=== PATIENT | female | born 1955 ===

== ENCOUNTER → 2020-12-24 08:00 | Outpatient (CLI) | payer OTHER | END | disposition home or self-care (01) | LOC: PPH VACUNA 08:00 | DX: Z23 Encounter for immunization (principal) ==

== ENCOUNTER 2025-02-19 07:42 | Day surgery (SDC) | payer OTHER ==
[2025-02-13 08:33] VITALS: BP 160/80
[2025-02-13 08:42] LABS: URINE APPEARANCE Clear; URINE BILIRRUBIN Negative (NEGATIVE); URINE COLOR Dark Yellow; URINE GLUCOSE Negative (NEGATIVE); URINE KETONE Trace (NEGATIVE); URINE LEUKOCYTE Moderate; URINE NITRATE Negative; URINE PROTEIN 30 (NEGATIVE)
[2025-02-13 08:46] LABS: BASO % 0.7 % (0.1-1.2); EOS # 0.15 (0.04-0.54); EOS % 3.7 % (0.7-7.0); HEMATOCRIT 41.4 % (34.1-44.9); HEMOGLOBIN 13.3 g/dL (11.2-15.7); LYMPH # 1.25 (1.18-3.74); LYMPH % 30.5 % (19.3-53.1); MEAN CORPUSCULAR HEMOGLOBIN 27.7 pg (25.6-32.2); MONO # 0.47 (0.24-0.82); MONO % 11.5 % (4.7-12.5); NEUT # 2.18 (1.56-6.13); NEUT % 53.1 % (34.0-71.1); PLATELET COUNT 367 K/uL (163-369); RED CELL DISTRIBUTION WIDTH 12.6 % (11.6-14.4)
[2025-02-13 08:46] LABS: URINE BACTERIA 64.8 uL (0.0-1933); URINE EPITHELIAL CELLS 47.9 uL (0.0-38.8); URINE RBC 29.3 uL (0.0-20.8); URINE WBC 436.7 uL (0.0-23.2)
[2025-02-13 09:00] LABS: URINE BLOOD TRACES; URINE CAST 0.44 uL (0.0-1.40)
[2025-02-13 09:10] LABS: TYPE CELLS RENAL TUBULAR
[2025-02-13 09:15] LABS: INR 0.94; PARTIAL THROMBOPLASTIN TIME 28.5 SECONDS (22.0-34.0); PROTHROMBIN TIME 10.3 SECONDS (9.0-11.5)
[2025-02-13 12:30] LABS: ALBUMIN 3.5 gm/dL (3.4-5.0); BILIRUBIN TOTAL 1.06 mg/dL (0.3-1.2); CALCIUM 8.8 mg/dL (8.5-10.1); CREATININE SERUM 0.75 mg/dL (0.55-1.02); GFR 76.84; GLOBULINA 3.7 G/DL (2.4-3.5); POTASSIUM 4.39 mEq/L (3.5-5.1); TOTAL PROTEIN 7.2 gm/dL (6.4-8.2)
[~2025-02-19] VITALS: Ht 149.9 cm; Wt 83.0 kg
[~2025-02-19 07:42] MED LIST: ALENDRONATE SOD70 MG; ALLERGY RELIEF10 MG; ATIVAN0.5 M1 PO; CELEXA20 MG PO; COZAAR50 MG; FLONASE16 GM; FLUTICASONE-SA1 EAC6; GABAPENTIN100 M2; GABAPENTIN100 MG PO; HYDROXYCHLOROQ200 MG; LEVOTHYROXINE25 MCG PO; LIPITOR40 MG PO; NORFLEX100MG PO; OXYC1TAB9 PO; PLAQUENIL PO; PLAVIX75 MG PO; PREDNISONE10 M2; PROTONIX40 MG PO; SPIRIVA RESPIMAT4 G1; TEZSPIRE210 MG/1.9; XARELTO10 MG PO
[2025-02-19] MEDS ORDERED: TRANEXAMIC ACID 100MG/1ML (1000MG) AMPUL IV ONE (07:49)
[2025-02-19] MEDS ORDERED: OxyCODONE HCL 5 MG TABLET (ROXICODONE) PO PRN (08:30)
[2025-02-19] MEDS ORDERED: ONDANSETRON HCL 2 MG/ML VIAL IV PRN (08:30)
[2025-02-19] MEDS ORDERED: ENOXAPARIN SODIUM 30 MG/0.3 ML SYRINGE SUBCUTANEO SCH (09:00)
[2025-02-19] MEDS ORDERED: CEFAZOLIN SODIUM 1,000 MG VIAL IV SCH (12:00)
[2025-02-19] MEDS ORDERED: MORPHINE SULFATE 4 MG/ML CARTRIDGE IV SCH (12:00)
[2025-02-19] MEDS ORDERED: GABAPENTIN 100 MG CAPSULE PO SCH (21:00)
[2025-02-19] MEDS ORDERED: ORPHENADRINE CITRATE 100 MG TABLET PO SCH (21:00)
== END 2025-02-19 11:10 | disposition home or self-care (01) ==
LOC: O/R 07:42 → SURH 07:42 → CIR.AMB 07:42 → SURH 08:45 → EDSTATUS 08:45 → SURH 10:00 → CIR.AMB 11:10 → O/R 11:10
PROVIDERS: ATTEND Orthopaedic Surgery
DX: M17.11 Unilateral primary osteoarthritis, right knee (principal); Z53.09 Procedure and treatment not carried out because of other contraindication

== ENCOUNTER 2025-02-26 05:32 | Inpatient (IN) | payer OTHER ==
[2025-02-26] MEDS ORDERED: CEFAZOLIN SODIUM 1,000 MG VIAL ONE (08:56)
[2025-02-26] MEDS ORDERED: TRANEXAMIC ACID 100MG/1ML (1000MG) AMPUL IV ONE (08:57)
[2025-02-26] MEDS ORDERED: OxyCODONE HCL/APAP UD (PERCOCET) PO PRN (10:45)
[2025-02-26] MEDS ORDERED: ONDANSETRON HCL 2 MG/ML VIAL IV PRN (10:45)
[2025-02-26] MEDS ORDERED: CEFAZOLIN SODIUM 1,000 MG VIAL IV SCH (12:00)
[2025-02-26] MEDS ORDERED: MORPHINE SULFATE 4 MG/ML CARTRIDGE IV SCH (12:00)
[2025-02-26] MEDS ORDERED: LIDOCAINE HCL 1%/EPINEPHRINE 20ML VIAL IJ ONE (12:04)
[2025-02-26] MEDS ORDERED: ISOPROPYL ALCOHOL 30 ML OUNCE TOP ONE (12:04)
[2025-02-26] MEDS ORDERED: VANCOMYCIN HCL 1,000 MG VIAL ONE (12:04)
[2025-02-26] MEDS ORDERED: BUPIVACAINE HCL/MPF 0.5% 30ML VIAL ONE (12:05)
[2025-02-26] MEDS ORDERED: MORPHINE SULFATE 4 MG/ML VIAL IV ONE (15:40)
[2025-02-26] MEDS ORDERED: MORPHINE SULFATE 2 MG/ML CARTRIDGE IV ONE (16:10)
[2025-02-26 17:21] VITALS: BP 124/70
[2025-02-26] MEDS ORDERED: ACETAMINOPHEN 500 MG GEL..CAP PO ONE (18:03)
[2025-02-26] MEDS ORDERED: ORPHENADRINE CITRATE 100 MG TABLET PO SCH (21:00)
[2025-02-26] MEDS ORDERED: GABAPENTIN 100 MG CAPSULE PO SCH (21:00)
[2025-02-26] MEDS ORDERED: ACETAMINOPHEN 500 MG GEL..CAP PO PRN (23:00)
[2025-02-26] MEDS ORDERED: LORazepam 1 MG TABLET PO PRN (23:00)
[2025-02-26] MEDS ORDERED: ENALAPRILAT DIHYDRATE 1.25 MG/ML VIAL IV PRN (23:00)
[2025-02-27 01:29] VITALS: BP 137/68; O2SAT 99
[2025-02-27] MEDS ORDERED: LEVOTHYROXINE SODIUM 25 MCG TABLET PO SCH (06:00)
[2025-02-27 08:16] LABS: BASO % 0.2 % (0.1-1.2); HEMATOCRIT 38.8 % (34.1-44.9); HEMOGLOBIN 12.2 g/dL (11.2-15.7); LYMPH # 0.69 (1.18-3.74); LYMPH % 7.8 % (19.3-53.1); MEAN CORPUSCULAR HEMOGLOBIN 27.1 pg (25.6-32.2); MONO # 0.88 (0.24-0.82); NEUT # 7.17 (1.56-6.13); NEUT % 81.5 % (34.0-71.1); PLATELET COUNT 357 K/uL (163-369); RED BLOOD COUNT 4.51 M/uL (3.93-5.22); RED CELL DISTRIBUTION WIDTH 13.2 % (11.6-14.4)
[2025-02-27] MEDS ORDERED: FAMOTIDINE/PF 20 MG in 0.9 % SODIUM CHLORIDE 8 ML IV PUSH SCH (09:00)
[2025-02-27] MEDS ORDERED: ENOXAPARIN SODIUM 30 MG/0.3 ML SYRINGE SUBCUTANEO SCH (09:00)
[2025-02-27] MEDS ORDERED: LOSARTAN POTASSIUM 50 MG TABLET PO SCH (09:00)
[2025-02-27 09:24] VITALS: BP 151/92; O2SAT 95
[2025-02-27] MEDS ORDERED: Cyanocobalamin/Mecobalamin 1 TAB.SL SL SCH (13:00)
[2025-02-27] MEDS ORDERED: IRON FUM,PS/FOLIC ACID/VITC/B3 1 CAP CAPSULE PO SCH (13:01)
[2025-02-27 15:17] LABS: COVID-19 AG NEGATIVE (NEGATIVE)
[2025-02-27 16:36] VITALS: BP 188/80; O2SAT 96
[2025-02-27] MEDS ORDERED: ATORVASTATIN CALCIUM 40 MG TABLET PO SCH (17:00)
[2025-02-27] MEDS ORDERED: VITAMIN B COMPLEX 1 EACH PO SCH (17:00)
[2025-02-28 00:58] VITALS: BP 136/67; O2SAT 99
[2025-02-28 06:44] LABS: BASO % 0.4 % (0.1-1.2); EOS # 0.01 (0.04-0.54); EOS % 0.1 % (0.7-7.0); HEMATOCRIT 37.2 % (34.1-44.9); HEMOGLOBIN 12.1 g/dL (11.2-15.7); LYMPH # 1.02 (1.18-3.74); LYMPH % 10.6 % (19.3-53.1); MEAN CORPUSCULAR HEMOGLOBIN 27.4 pg (25.6-32.2); MONO # 1.35 (0.24-0.82); NEUT # 7.15 (1.56-6.13); NEUT % 74.5 % (34.0-71.1); PLATELET COUNT 309 K/uL (163-369); RED BLOOD COUNT 4.41 M/uL (3.93-5.22); RED CELL DISTRIBUTION WIDTH 13.1 % (11.6-14.4)
[2025-02-28 07:30] VITALS: BP 161/93; O2SAT 95
[2025-02-28 10:38] VITALS: BP 139/58
[2025-02-28] MEDS ORDERED: NORFLEX100MG PO (12:52)
[2025-02-28] MEDS ORDERED: OXYC1TAB9 PO (12:53)
[2025-02-28] MEDS ORDERED: GABAPENTIN100 MG PO (12:53)
[2025-02-28] MEDS ORDERED: XARELTO10 MG PO (12:53)
[2025-02-28 16:52] VITALS: BP 157/82; O2SAT 96
== END 2025-02-28 17:49 | DRG 470 ==
LOC: O/R 05:32 → SURG 05:32 → SURH 10:15 → SURG 15:29
PROVIDERS: ADMIT Orthopaedic Surgery; ATTEND Orthopaedic Surgery
PROC: 0SRC0JZ Replacement of Right Knee Joint with Synthetic Substitute, Open Approach (ICD-10-PCS; principal; 2025-02-26 10:15)
DX: M17.11 Unilateral primary osteoarthritis, right knee (principal); D62 Acute posthemorrhagic anemia; M85.661 Other cyst of bone, right lower leg; I10 Essential (primary) hypertension; E03.9 Hypothyroidism, unspecified